=== PATIENT | male | born 1990 | race Caucasian/White ===

== ENCOUNTER 2016-09-25 16:53 | Emergency (ER) | payer OTHER ==
[2016-09-25 17:30] LABS: BASOPHIL COUNT 0.1 K/uL (0-0.1); EOSINOPHIL (%) 2.2 % (0-5); EOSINOPHIL COUNT 0.2 K/uL (0-0.3); HEMATOCRIT 42.3 % (38.0-50.0); IMMATURE GRANULOCYTE (%) 0.3 % (0.0-0.7); IMMATURE GRANULOCYTE COUNT 0.3 K/uL; LYMPHOCYTE COUNT 2.3 K/uL (1.0-2.8); MCHC 36.4 G/DL (30.0-36.0); MCV 85.3 FL (86-99); MEAN PLAT.VOLUME 8.8 uM^3 (9.0-12.4); MONOCYTE (%) 7.8 % (3-12); MONOCYTE COUNT 0.7 K/uL (0-0.8); NEUTROPHIL (%) 62.9 % (45-76); NEUTROPHIL COUNT 5.5 K/uL (1.8-6.4); PLATELET COUNT 266 K/uL (156-360); RBC DIS.WIDTH-SD 35.8 % (39-53); RED BLOOD COUNT 4.96 M/uL (4.00-5.50); WHITE BLOOD COUNT 8.7 K/uL (4.1-10.2)
[2016-09-25 17:41] LABS: AMYLASE 34 IU/L (1-118); CHLORIDE 105 mEq/L (99-109); POTASSIUM 3.4 mEq/L (3.7-5.4); SODIUM 140 mEq/L (136-147)
[2016-09-25 17:43] LABS: GLUCOSE 110 mg/dL (70-99)
[2016-09-25 17:44] LABS: ANION GAP 13 MEQ/L (2-14)
[2016-09-25 17:46] LABS: SERUM ETHYL ALCOHOL < 10 mg/dL
[2016-09-25 17:48] LABS: UREA NITROGEN (BUN) 14 mg/dL (9-23)
[2016-09-25 17:50] LABS: LIPASE 27 U/L (1.0-51.0)
[2016-09-25 17:52] LABS: GFR ESTIMATE (CALCULATED) > 59 mL/min/
== END 2016-09-25 20:18 | disposition home or self-care (01) ==
LOC: TRA 16:53
PROVIDERS: Emergency Medicine
DX: M25.531 Pain in right wrist (principal); R10.9 Unspecified abdominal pain; V49.40XA Driver injured in collision with unspecified motor vehicles in traffic accident, initial encounter; Y92.411 Interstate highway as the place of occurrence of the external cause
CPT/HCPCS: 71260; 73100; 74177; 80048; 81003; 82150; 83690; 85025; 86850; 86900; 86901; 99281; 99285; G0480